=== PATIENT | female | born 1990 | race Two or more races ===

== ENCOUNTER 2017-04-12 19:36 | Emergency (ER) | payer OTHER ==
[~2017-04-12] VITALS: Ht 139.7 cm; Wt 66.7 kg
--- NOTE | 2017-04-12 19:38 | NUR ---
BB RA; LIGHTHEADED/ "FAINTED" S/P PLASMA DONATION . AWAITING BED. AWAITING MD ORDER
--- NOTE | 2017-04-12 20:22 | NUR ---
PATIENT TO ER BED
--- NOTE | 2017-04-12 20:30 | NUR ---
AYDEN TRENT AT BEDSIDE FOR EVAL
--- NOTE | 2017-04-12 20:43 | NUR ---
REACTOR SERVICE OPERATOR AT BEDSIDE FOR BLOOD DRAW
[2017-04-12] MEDS ORDERED: LIDOCAINE HCL/PF 1% 30 ML SDV ONE (20:47)
[2017-04-12 20:48] LABS: BASOPHILS % (AUTO) 0.8 % (0.0-2.0); EOSINOPHILS # (AUTO) 0.1 /CMM (0.0-0.7); EOSINOPHILS % (AUTO) 2.2 % (0.0-6.0); HEMATOCRIT 41 % (33-45); HEMOGLOBIN 14.3 g/dL (11.5-14.8); LYMPHOCYTES # (AUTO) 1.6 /CMM (0.8-4.8); LYMPHOCYTES % (AUTO) 25.7 % (20.0-44.0); MEAN CORPUSCULAR HEMOGLOBIN 30 PG (26.0-33.0); MEAN CORPUSCULAR HGB CONC 35 g/dl (31.0-36.0); MEAN CORPUSCULAR VOLUME 86 fL (82-100); MONOCYTES # (AUTO) 0.3 /CMM (0.1-1.30); MONOCYTES % (AUTO) 4.9 % (2.0-12.0); NEUTROPHILS # (AUTO) 4.1 /CMM (1.8-8.9); NEUTROPHILS % (AUTO) 66.4 % (43.0-81.0); PLATELET COUNT (AUTO) 170 /CMM (150-450); RDW COEFFICIENT OF VARIATION 12.6 (11.5-15.0); RED BLOOD CELL COUNT(AUTO) 4.82 MIL/uL (4.0-5.2); WHITE BLOOD COUNT (AUTO) 6.1 K/uL (4.3-11.0)
[2017-04-12 20:56] LABS: CALCIUM, SERUM 7.8 mg/dL (8.5-10.1); CREATININE 0.8 mg/dL (0.6-1.3); POTASSIUM 3.6 mmol/L (3.5-5.1)
--- NOTE | 2017-04-12 21:10 | NUR ---
URINE SAMPLE COLLECTED SENT TO LAB
[2017-04-12 21:17] LABS: APPEARANCE,URINE Clear (CLEAR); BILIRUBIN,URINE Negative (NEGATIVE); BLOOD, URINE Negative Ery/uL (NEGATIVE); COLOR,URINE Yellow (YELLOW); KETONES,URINE Negative (NEGATIVE); LEUKOCYTE ESTERASE ,URINE Small (NEGATIVE); NITRITE, URINE Negative (NEGATIVE); PROTEIN,URINE Negative (NEGATIVE); UGLUCOSE Negative (NEGATIVE); UROBILINOGEN,URINE 0.2 EU/dL (0.2)
[2017-04-12 21:33] LABS: BACTERIA,URINE None seen /HPF (None Seen); RBC,URINE NONE SEEN /HPF (0-2); SQUAMOUS EPITHELIAL CELL,UR Many /HPF (None Seen); WBC,URINE 0-2 /HPF (0-3)
--- NOTE | 2017-04-12 21:39 | NUR ---
Patient eloped from facility. ER MD DR PRIETO notified.
--- NOTE | 2017-04-12 21:39 | NUR ---
IV removed. Catheter intact and site benign. Pressure and 4x4 applied to site. No bleeding noted.
[2017-04-12 21:40] VITALS: BP 110/74
== END 2017-04-12 21:44 | disposition left against medical advice (07) ==
LOC: ER 19:38
DX: R55 Syncope and collapse (principal)
CPT/HCPCS: 36415; 80048; 81001; 82962; 84703; 85025; 93005; 99285; A4606; J3490; Z7610; 81000-TC